=== PATIENT | female | born 1955 | race Caucasian/White ===

== ENCOUNTER → 2016-12-17 | Outpatient (CLI) | payer BC | LOC: FIMAGING 11:30 | DX: Z12.31 Encounter for screening mammogram for malignant neoplasm of breast (principal) | CPT/HCPCS: G0202 ==

== ENCOUNTER → 2017-12-21 | Outpatient (CLI) | payer BC | LOC: FIMAGING 11:30 | PROVIDERS: ATTEND Internal Medicine | DX: Z12.31 Encounter for screening mammogram for malignant neoplasm of breast (principal) ==

== ENCOUNTER 2018-04-12 15:38 | Emergency (ER) | payer BC ==
--- NOTE | 2018-04-12 16:05 | EDPHY ---
H & P Stated Complaint: dzzyness x 1 month/acid /indigestion Time Seen by Provider: 04/12/18 15:47 HPI/ROS: Chief Complaint: Dizziness, chest discomfort HPI: 62-year-old woman has been having episodes of dizziness on nearly a daily basis for the last 2 months. For the last several weeks she has also been having the sensation of fullness or tightness in her upper chest, primarily after she eats but does occasionally get this sensation when she is not eating. She is not having any other chest pain. No shortness of breath. No nausea or vomiting. She is not having any palpitations. No syncope. She is describing the dizziness as a sensation that she is off balance or that she has been standing on a moving shift. Is not dizzy. No nausea. Symptoms usually last for couple hours. She has not been taking any medications for this. She has been taking some Zantac for the discomfort in her chest or the sensation of fullness after she eats without any relief. She is not getting any discomfort waking her up in a Jay night. The Zantac is not provided any relief. Ten years ago she did have an episode of chest tightness while mountain biking and followed up with public relations writer who noted a 90% stenosis on coronary angiography. This was not stented will. She is treatment with a statin is currently taking baby aspirin and followed up with Dr. Cruz for several years. She has not seen a public relations writer for 2 years but has continued to be managed by her primary care physician. No recent illness. No fevers or chills. No calf pain or tenderness. ROS: 10 point Review of Systems is negative except as noted in the HPI. PMH: Coronary artery disease Social History: No smoking, occasional alcohol, no recreational drug use Family History: non-contributory Physical Exam: Gen: Awake, Alert, No Distress HEENT: Nose: no rhinorrhea Eyes: PERRLA, EOMI Mouth: Moist mucosa Neck: Supple, no JVD Chest: nontender, lungs clear to auscultation Heart: S1, S2 normal, no murmur Abd: Soft, non-tender, no guarding Back: no CVA tenderness, no midline tenderness Ext: no edema, non-tender Skin: no rash Neuro: CN II-XII intact, Sensation grossly intact, Strength 5/5 in bilateral upper and lower extremities - Personal History Current Tetanus Diphtheria and Acellular Pertussis (TDAP): Yes - Medical/Surgical History Hx Asthma: No Hx Chronic Respiratory Disease: No Hx Diabetes: No Hx Cardiac Disease: Yes Hx Renal Disease: No Hx Cirrhosis: No Hx Alcoholism: No Hx HIV/AIDS: No Hx Splenectomy or Spleen Trauma: No Other PMH: unstentable CAD that is tx medically/stents - Social History Smoking Status: Never smoked Constitutional: Initial Vital Signs Temperature (C) 36.8 C 04/12/18 15:42 Heart Rate 60 04/12/18 15:42 Respiratory Rate 18 04/12/18 15:42 Blood Pressure 168/96 H 04/12/18 15:42 O2 Sat (%) 97 04/12/18 15:42 O2 Delivery Mode Room Air Allergies/Adverse Reactions: No Known Allergies Allergy (Verified 04/12/18 15:41) Home Medications: Medication Instructions Recorded FLUoxetine [Prozac] 30 mg PO DAILY 06/28/11 Pravastatin Sodium 04/12/18 Medical Decision Making - Diagnostics Imaging Results: Imaging Impressions Chest X-Ray 04/12/18 16:05 Impression: Excellent inspiration. Otherwise negative. ED Course/Re-evaluation: 62-year-old presenting with episodes lightheadedness and discomfort in her chest. Symptoms are quite vague and nonspecific. She does have a history of coronary artery disease with a 90% stenosis in the past. Her ECG is entirely normal. Troponin is normal. Her laboratory evaluations are unremarkable. I do not see any evidence of acute arrhythmia at this time. Her dizziness symptoms coming go and sound possibly more cardiac rather than neurologic. I do not think a CT scan of the brain is indicated at this time. She does have a history of coronary artery disease but there is no evidence of acute ischemia or acute cardiac insult based upon her labs. This will need further workup. I would recommend that she follow up with Cardiology and GI. Symptoms sound somewhat like reflux as she has after she is but she is not waking up with symptoms is not having any improvement with Zantac. I would probably recommend starting her on a proton pump inhibitor. She also probably benefit from a Holter monitor to make sure that she is not going into some sort of arrhythmia. Otherwise there is no indication for further inpatient workup at this time. I have discussed this with the patient and she is comfortable with this plan. Will discharge her with follow up with her public relations writer, primary care physician and referral to Gastroenterology. - Data Points Laboratory Results: Laboratory Results 04/12/18 16:13 04/12/18 16:13 04/12/1818 04/12/18 16:18 16:13 16:13 WBC 6.11 10^3/uL 10^3/uL (3.80-9.50) RBC 4.27 10^6/uL 10^6/uL (4.18-5.33) Hgb 14.8 g/dL g/dL (12.6-16.3) Hct 41.9 % % (38.0-47.0) MCV 98.1 fL fL (81.5-99.8) MCH 34.7 pg H pg (27.9-34.1) MCHC 35.3 g/dL g/dL (32.4-36.7) RDW 11.4 % L % (11.5-15.2) Plt Count 237 10^3/uL 10^3/uL (150-400) MPV 9.0 fL fL (8.7-11.7) Neut % (Auto) 55.6 % % (39.3-74.2) Lymph % (Auto) 33.4 % % (15.0-45.0) [place] % (Auto) 9.0 % % (4.5-13.0) Eos % (Auto) 1.1 % % (0.6-7.6) Baso % (Auto) 0.7 % % (0.3-1.7) Nucleat RBC Rel Count 0.0 % % (0.0-0.2) Absolute Neuts (auto) 3.40 10^3/uL 10^3/uL (1.70-6.50) Absolute Lymphs (auto) 2.04 10^3/uL 10^3/uL (1.00-3.00) Absolute Monos (auto) 0.55 10^3/uL 10^3/uL (0.30-0.80) Absolute Eos (auto) 0.07 10^3/uL 10^3/uL (0.03-0.40) Absolute Basos (auto) 0.04 10^3/uL 10^3/uL (0.02-0.10) Absolute Nucleated RBC 0.00 10^3/uL 10^3/uL (0-0.01) Immature Gran % 0.2 % % (0.0-1.1) Immature Gran # 0.01 10^3/uL 10^3/uL (0.00-0.10) Sodium 141 mEq/L mEq/L (135-145) Potassium 3.6 mEq/L mEq/L (3.3-5.0) Chloride 102 mEq/L mEq/L (97-110) Carbon Dioxide 26 mEq/l mEq/l (22-31) Anion Gap 13 mEq/L mEq/L (8-16) BUN 15 mg/dL mg/dL (7-23) Creatinine 0.7 mg/dL mg/dL (0.6-1.0) Estimated GFR > 60 Glucose 89 mg/dL mg/dL (70-100) Calcium 10.1 mg/dL mg/dL (8.5-10.4) POC Troponin I 0.00 ng/mL ng/mL (0.00-0.08) Point of Care Test Results: Chemistry 04/12/18 16:18 POC Troponin I 0.00 ng/mL ng/mL (0.00-0.08) Departure - Departure Disposition: Home, Routine, Self-Care Clinical Impression: Dizziness, Chest discomfort Condition: Good Instructions: Dizziness (ED), Chest Pain (ED) Additional Instructions: Follow up with your public relations writer in the next 2-3 days for further evaluation. Follow up with primary care physician next 2-3 days for further evaluation. Follow up with Gastroenterology in the next week for further evaluation. Return to the emergency department for worsening dizziness, nausea vomiting, chest pain, shortness of breath, fainting, or any other concerns. I would recommend starting Prilosec [id number] for your chest discomfort symptoms. Referrals: Marge Del Rio [Primary Care Provider] - As per Instructions Darwin Cruz MD [Medical Doctor] - As per Instructions Jovanny Persaud MD [Medical Doctor] - As per Instructions
--- NOTE | 2018-04-12 16:08 | CPEKG ---
Heart Rate: 58 RR Interval: 1034 P-R Interval: 140 QRSD Interval: 88 QT Interval: 412 QTC Interval: 405 P [place]: 49 QRS [place]: 18 T Wave [place]: 22 EKG Severity - NORMAL ECG - EKG Impression: SINUS RHYTHM Electronically Signed By: Jovanny Barker 12-Apr-2018 23:23:05
[2018-04-12 16:23] LABS: PLATELET COUNT 237 10^3/uL (150-400)
[2018-04-12 17:15] VITALS: BP 159/100
== END 2018-04-12 17:16 | disposition home or self-care (01) ==
DX: R07.89 Other chest pain (principal); R42 Dizziness and giddiness; I25.10 Atherosclerotic heart disease of native coronary artery without angina pectoris
CPT/HCPCS: 84484-PO

== ENCOUNTER → 2019-01-07 | Outpatient (CLI) | payer BC | LOC: FIMAGING 13:30 | PROVIDERS: ATTEND Internal Medicine | DX: Z12.31 Encounter for screening mammogram for malignant neoplasm of breast (principal) ==

== ENCOUNTER → 2019-04-12 | Outpatient (CLI) | payer BC | LOC: FIMAGING 13:35 ==